=== PATIENT | male | born 1970 | race African-American/Black ===

== ENCOUNTER 2017-03-23 01:21 | Emergency (ER) | payer MEDICAID, OTHER ==
[~2017-03-23] VITALS: Ht 198.1 cm; Wt 99.3 kg
[2017-03-23 01:24] VITALS: Ht 198.1 cm; Wt 99.3 kg
[2017-03-23] MEDS ORDERED: HYDROCODONE/APAP (5/325) TAB PO ONE (02:00)
[2017-03-23] MEDS ORDERED: INDO25CA25 PO (02:04)
--- NOTE | 2017-03-23 02:39 | ERD ---
ER Documentation Chief Complaint Chief Complaint c/o left lateral foot pain x 2 day. No trauma or deformity. HPI Otherwise healthy 46-year-old male presents with a chief complaint of left lateral foot pain 2 days. No similar symptoms in the past. Pain worse with touching. States that even light pressure can cause severe pain. No medications. Denies any history of gout or pseudogout or arthritis. No swelling, fever, chills, abdominal pain, chest pain, shortness of breath, alcohol abuse, or drug use. No recent travel. No sick contacts. No history of laceration or trauma. Patient has no other complaints and describes no other associated manifestations. Nursing notes have been reviewed and are consistent with history given. ROS All systems reviewed and are negative except as per history of present illness. Medications Home Meds Active Scripts Indomethacin* (Indocin*) 25 Mg Capsule, 25 MG PO Q8 for 3 Days, CAP Prov:SAURAV LENZ PA-C 03/23/17 Allergies Allergies: Coded Allergies: No Known Allergy (Unverified , 03/23/17) PMhx/Soc History of Surgery: Yes (right eye surgery when 12 years old) Anesthesia Reaction: No Hx Neurological Disorder: No Hx Respiratory Disorders: No Hx Cardiac Disorders: No Hx Psychiatric Problems: No Hx Miscellaneous Medical Probl: No Hx Alcohol Use: Yes Hx Substance Use: No Hx Tobacco Use: Yes Smoking Status: Current every day smoker Physical Exam Vitals Vital Signs Date Time Temp Pulse Resp B/P Pulse Ox O2 Delivery O2 Flow Rate FiO2 03/23/17 01:24 98.3 94 18 139/85 98 Physical Exam Const: Well-appearing 46-year-old male in no acute distress Ext: Tenderness palpation with light pressure over the lateral left foot around the lateral fifth metatarsal. No cyanosis, or edema. Skin: White calcified soles of the feet bilaterally. No rashes or petechiae noted. Head: Atraumatic Eyes: Normal Conjunctiva. PERRLA, EOMI. Neck: Full range of motion..~ No meningismus. Resp: Equal chest expansion. No tripoding or use of accessory muscles. Cardio: Cap refill less than 2 seconds. Pulses 2+ bilaterally. Back: No midline or flank tenderness Neur: Awake and alert. Sensation intact. Psych: Normal Mood and Affect Results 24 hrs Current Medications Medications (Trade) Dose Ordered Sig/Sim Route PRN Reason Start Time Stop Time Status Last Admin Dose Admin Acetaminophen/ Hydrocodone Bitart ([place] (5/325)) 1 tab ONCE ONCE PO 03/23/17 02:00 03/23/17 02:01 DC 03/23/17 01:55 Procedures/MDM Patient presented with a chief complaint of left lateral foot pain 2 days. No medications taken. No previous medical conditions or similar symptoms in the past. X-ray was obtained to rule out bony pathology. X-ray was read by the radiologist given the following impression: Hallux valgus and bunion, and otherwise, no acute fracture. At this time most likely diagnosis is foot pain of unknown etiology versus gout versus pseudogout. I have no suspicion for bony pathology, or neurovascular compromise. Patient is stable and appropriate for discharge. Discharge medications: Indomethacin. Departure Diagnosis: Primary Impression: Foot pain Laterality: left Qualified Code: M79.672 - Left foot pain Condition: Stable Patient Instructions: Treating Gout Attacks Additional Instructions: Follow up with your PCP within the next 1-3 days for a more thorough evaluation and a possible referral to a specialist. Return the the emergency department immediately if symptoms worsen or change. If you have any questions regarding medications, ask your pharmacist or us before you leave. If any adverse reactions occur while taking your medications, discontinue the treatment and return to the emergency department immediately. Take your medications as directed, and complete the entire course of treatment. SAURAV LENZ PA-C Mar 23, 2017 02:39
[2017-03-23 03:02] VITALS: BP 123/62; PULSE 65; RESP 18; TEMP 98.2
--- NOTE | 2017-03-23 06:54 | RADRPT ---
PROCEDURE: X-ray left foot. CLINICAL INDICATION: Left foot pain TECHNIQUE: 3 views left foot COMPARISON: None. FINDINGS: Hallux valgus and bunion. No acute fracture or dislocation. Plantar calcaneal enthesophyte. Degenera tive changes at the dorsal talonavicular joint, with small marginal osteophyte. Soft tissues unremar kable. IMPRESSION: Hallux valgus and bunion, and otherwise, no acute fracture. RPTAT: [facility] Physician Juan A Date Time Electronically viewed and signed by Physician Juan A on 03/23/2017 02:33 RS/
== END 2017-03-23 03:02 | disposition home or self-care (01) ==
LOC: FTE 01:21
DX: M79.672 Pain in left foot (principal); F17.210 Nicotine dependence, cigarettes, uncomplicated
CPT/HCPCS: 73630; Z7502; Z7610

== ENCOUNTER 2017-03-26 01:08 | Emergency (ER) | payer MEDICAID ==
[~2017-03-26] VITALS: Ht 198.1 cm; Wt 105.6 kg
[~2017-03-26 01:08] MED LIST: INDO25CA25 PO
[2017-03-26 01:13] VITALS: Ht 198.1 cm; Wt 105.6 kg
[2017-03-26] MEDS ORDERED: KETOROLAC 30 MG INJ IM STA (01:31)
[2017-03-26] MEDS ORDERED: HYDR-906 PO (01:33)
--- NOTE | 2017-03-26 01:36 | ERD ---
ER Documentation Chief Complaint Chief Complaint R knee pain x 3 days, no injury HPI This is a 46-year-old male with history of meniscal repair in the right knee 2 years ago presenting with right knee pain that occurred suddenly when he woke up from sleep today. Patient states the pain is moderate in severity, he states he is able to ambulate but he has pain with ambulation. He denies any trauma. Denies any fevers ROS All systems reviewed and are negative except as per history of present illness. Medications Home Meds Active Scripts Hydrocodone/Acetaminophen ([place] 5-325 Tablet) 1 Each Tablet, 1 TAB PO Q6H Y for PAIN, #20 TAB Prov:DAMIAN SCHMIDT PA-C 03/26/17 Indomethacin* (Indocin*) 25 Mg Capsule, 25 MG PO Q8 for 3 Days, CAP Prov:SAURAV LENZ PA-C 03/23/17 Allergies Allergies: Coded Allergies: No Known Allergy (Unverified , 03/23/17) PMhx/Soc History of Surgery: Yes (RIGHT KNEE 2 YEARS AGO) Anesthesia Reaction: No Hx Neurological Disorder: No Hx Respiratory Disorders: No Hx Cardiac Disorders: No Hx Psychiatric Problems: No Hx Miscellaneous Medical Probl: No Hx Alcohol Use: Yes Hx Substance Use: No Hx Tobacco Use: Yes Smoking Status: Current every day smoker Physical Exam Vitals Vital Signs Date Time Temp Pulse Resp B/P Pulse Ox O2 Delivery O2 Flow Rate FiO2 03/26/17 01:13 97.2 59 20 174/98 98 Physical Exam Const: [] Head: Atraumatic Eyes: Normal Conjunctiva ENT: Normal External Ears, Nose and Mouth. Neck: Full range of motion..~ No meningismus. Resp: Clear to auscultation bilaterally Cardio: Regular rate and rhythm, no murmurs Abd: Soft, non tender, non distended. Normal bowel sounds Skin: No petechiae or rashes Back: No midline or flank tenderness Ext: No cyanosis, or edema, walks with limp Neur: Awake and alert Psych: Normal Mood and Affect Results 24 hrs Current Medications Medications (Trade) Dose Ordered Sig/Sim Route PRN Reason Start Time Stop Time Status Last Admin Dose Admin Ketorolac Tromethamine (Toradol) 30 mg ONCE STAT IM 03/26/17 01:31 03/26/17 01:32 DC Procedures/MDM This is a 46-year-old male presenting to the emergency department with history of meniscal repair in the right knee 2 years prior to being seen presenting with right anterior knee pain that occurred suddenly when he woke up from sleep today. There was no evidence of any fracture or dislocation. Patient will likely need to follow-up with his primary care physician to get a referral to see orthopedist. Patient was given a knee immobilizer and [place] bandage. He is neurovascular intact. Discussed return to the ER for any worsening condition or not improving as expected. Prescription for [place] was provided. Departure Diagnosis: Primary Impression: Knee pain Condition: Stable Patient Instructions: Knee Pain, Uncertain Cause Referrals: NO PRIMARY,CARE PHYSICIAN (PCP) Additional Instructions: Please follow-up with your primary physician, you will likely need a referral to see an orthopedist Take all medicines as directed. You have been given a medicine which may cause drowsiness.DO NOT DRIVE OR OPERATE DANGEROUS MACHINERY while taking this medicine! Return to this facility if you are not improving as expected. DAMIAN SCHMIDT PA-C Mar 26, 2017 01:36
== END 2017-03-26 01:57 | disposition home or self-care (01) ==
LOC: FTE 01:08
DX: M25.561 Pain in right knee (principal); F17.210 Nicotine dependence, cigarettes, uncomplicated
CPT/HCPCS: 29505; 96372; J1885; Z7502

== ENCOUNTER 2017-07-23 22:49 | Emergency (ER) | END 2017-07-24 04:00 | disposition home or self-care (01) ==

== ENCOUNTER 2017-07-28 03:24 | Emergency (ER) | END 2017-07-28 09:45 | disposition home or self-care (01) ==

== ENCOUNTER 2018-11-02 00:15 | Emergency (ER) | payer SELFPAY ==
[~2018-11-02] VITALS: Ht 198.1 cm; Wt 103.2 kg
[~2018-11-02 00:15] MED LIST changes: +FAMO-96 PO; +HYDR-3980 PO; +HYDR-4011 PO; +IBUP-1542 PO; +IBUP800T48 PO; +INDO25CA16 PO; -INDO25CA25 PO
[2018-11-02 00:37] VITALS: Ht 198.1 cm; Wt 103.2 kg
[2018-11-02] MEDS ORDERED: KETOROLAC 30 MG INJ IM STA (00:45)
--- NOTE | 2018-11-02 00:47 | ERD ---
ER Documentation Chief Complaint Chief Complaint low back pain just now, no injury/dysuria HPI 48-year-old male is here with a flareup of lower back pain that began today. He states from time to time this happens. Denies any injury or trauma. No bowel or bladder incontinence. No fever. No saddle anesthesia. No dysuria hematuria frequency. Has not taken any medications for his symptoms. ROS All systems reviewed and are negative except as per history of present illness. Medications Home Meds Active Scripts Famotidine* (Pepcid*) 20 Mg Tablet, 20 MG PO DAILY for 30 Days, #30 TAB Prov:GODWINILAGIUSEPPE MCMULLENAR F 07/28/17 Ibuprofen* (Motrin*) 800 Mg Tab, 800 MG PO Q6H PRN for PAIN AND OR ELEVATED TEMP, #30 TAB Prov:GODWINILAGIUSEPPE MCMULLENAR F 07/28/17 Hydrocodone/Acetaminophen ([place] 10-325 Tablet) 1 Each Tablet, 1 TAB PO Q6H PRN for PAIN, #7 TAB Prov:PASILAKEMIGIUSEPPEAR F 07/28/17 Ibuprofen* (Motrin*) 600 Mg Tab, 600 MG PO Q6, #30 TAB Prov:OTONIEL PRINCE PA-C 07/24/17 Hydrocodone/Acetaminophen ([place] 5-325 Tablet) 1 Each Tablet, 1 TAB PO Q6H PRN for PAIN, #20 TAB Prov:DAMIAN SCHMIDT PA-C 03/26/17 Indomethacin* (Indocin*) 25 Mg Capsule, 25 MG PO Q8 for 3 Days, CAP Prov:SAURAV LENZ PA-C 03/23/17 Allergies Allergies: Coded Allergies: No Known Allergy (Unverified , 07/28/17) PMhx/Soc History of Surgery: Yes (RIGHT KNEE 2016) Anesthesia Reaction: No Hx Neurological Disorder: No Hx Respiratory Disorders: No Hx Cardiac Disorders: No Hx Psychiatric Problems: No Hx Miscellaneous Medical Probl: No Hx Alcohol Use: Yes Hx Substance Use: Yes (MARIJUANA) Hx Tobacco Use: Yes FmHx Family History: No diabetes Physical Exam Vitals Vital Signs Date Temp Pulse Resp B/P (MAP) Pulse Ox O2 O2 Flow FiO2 Time Delivery Rate 11/02/18 97.8 80 18 137/81 99 00:37 (99) Physical Exam Const: No acute distress Head: Atraumatic Eyes: Normal Conjunctiva ENT: Normal External Ears, Nose and Mouth. Neck: Full range of motion. No meningismus. Resp: Clear to auscultation bilaterally Cardio: Regular rate and rhythm, no murmurs Back Exam: Compartments: Soft Motor: Normal flexion and extension of bilateral hip/knee/ankle/foot Sensation: Intact to light touch throughout Bones: No midline TTP Procedures/MDM The differential diagnosis includes but is not limited to muscle strain, ligament strain, contusion, arthritis, discogenetic disease, non- musculoskeletal, cauda equina syndrome, cord compression, abscess and others. Toradol and [place] given. Prescription for ibuprofen Flexeril and [place] given. Patient counseled regarding my diagnostic impression and care plan. Prior to discharge all questions answered. Pt agrees with treatment plan and understands strict return precautions. Pt is instructed to follow up with primary care provider within 24-48 hours. Precautionary instructions provided including instructions to return to the ER if not improving or for any worsening or changing symptoms or concerns. Departure Diagnosis: Primary Impression: Back pain Condition: Stable CHET BRAUN PA-C Nov 02, 2018 00:47
[2018-11-02] MEDS ORDERED: CYCL10TA7 PO (00:48)
[2018-11-02] MEDS ORDERED: IBUP-1544 PO (00:48)
[2018-11-02] MEDS ORDERED: HYDR-4011 PO (00:48)
[2018-11-02] MEDS ORDERED: HYDROCODONE/APAP (5/325) TAB PO ONE (01:00)
[2018-11-02 01:37] VITALS: BP 127/79; PULSE 17; RESP 17
== END 2018-11-02 01:38 | disposition home or self-care (01) ==
LOC: FTE 00:15
DX: M54.5 Low back pain (principal); Z87.891 Personal history of nicotine dependence
CPT/HCPCS: 96372; 99284; J1885

== ENCOUNTER 2018-12-04 22:45 | Emergency (ER) | payer SELFPAY ==
[~2018-12-04] VITALS: Ht 198.1 cm; Wt 105.0 kg
[~2018-12-04 22:45] MED LIST changes: +CYCL10TA7 PO; +IBUP-1544 PO; +INDO25CA PO; -INDO25CA16 PO; +OMEP40CA38 PO
[2018-12-04 22:56] VITALS: Ht 198.1 cm; Wt 105.0 kg
[2018-12-05] MEDS ORDERED: IBUPROFEN 800 MG TAB PO ONE (02:00)
[2018-12-05] MEDS ORDERED: FAMOTIDINE 20 MG TAB PO ONE (02:00)
[2018-12-05 03:37] VITALS: BP 118/67; PULSE 71; RESP 18
== END 2018-12-05 03:39 | disposition home or self-care (01) ==
LOC: FTE 22:45
DX: S82.001A Unspecified fracture of right patella, initial encounter for closed fracture (principal); W22.8XXA Striking against or struck by other objects, initial encounter; Y92.9 Unspecified place or not applicable
CPT/HCPCS: 73562